=== PATIENT | male | born 1940 | race Caucasian/White ===

== ENCOUNTER → 2017-01-09 | Outpatient (CLI) | payer OTHER ==
[~2017-01-09] MED LIST: IOPAMIDOL (ISOVUE-300) 50 ML VIAL ONE; LIDOCAINE 1% 300 MG/30 ML SDV ONE
== END ==
LOC: FIMAGING 09:54
PROVIDERS: ATTEND Orthopaedic Surgery Hand Surgery
PROC: 3E0U3KZ Introduction of Other Diagnostic Substance into Joints, Percutaneous Approach (ICD-10-PCS; principal; 2017-01-09)
DX: S63.511A Sprain of carpal joint of right wrist, initial encounter (principal); Z95.0 Presence of cardiac pacemaker
CPT/HCPCS: 25246; 73115; 73201; Q9967